=== PATIENT | female | born 1955 | race Caucasian/White ===

== ENCOUNTER 2017-05-16 07:25 | Day surgery (SDC) | payer BC ==
[~2017-05-16 07:25] MED LIST: Metoclopramide 10 MG/2 ML SDV IV PRN; Sodium Chloride 0.9% 10 ML Syringe FLUSH PRN
[2017-05-16] MEDS ORDERED: Sodium Chloride 0.9% 1,000 ML IV SCH (08:00)
[2017-05-16] MEDS ORDERED: Propofol 1,000 MG/100 ML SDV ONE (09:05)
[2017-05-16 09:43] VITALS: BP 109/70
--- NOTE | 2017-05-16 15:10 | OR ---
DATE OF OPERATION: 05/16/2017 PREOPERATIVE DIAGNOSIS: History of polyps. POSTOPERATIVE DIAGNOSIS: History of polyps. PROCEDURE: Colonoscopy. ANESTHESIA: MAC. ESTIMATED BLOOD LOSS: None. COMPLICATIONS: None. INDICATIONS FOR THE PROCEDURE: The patient is a 61-year-old female who 5 years ago had colonoscopy with removal of one small tubular adenomatous polyp. The patient is here today for her 5-year surveillance colonoscopy. The patient has not had any change in bowel habits or blood in the stool over the past 5 years. DESCRIPTION OF PROCEDURE: Informed consent was obtained from the patient. The patient was taken to the operating room and placed on the table in the left lateral decubitus position. Monitored anesthesia care was applied. Digital rectal exam was performed which was normal. The colonoscope was then inserted through the anus into the rectum and directed towards the cecum. We did utilize abdominal pressure to reach the cecum. The cecum was identified by the appendiceal orifice as well as the ileocecal valve. The colonoscope was then slowly withdrawn. No polyps, no masses, no areas of ischemia or inflammation, or AV malformations were identified on the way out. Retroflexion was performed in the rectum which was also normal. Colonoscope was then removed. The patient tolerated the procedure well and was brought to recovery room in good condition. FINDINGS: Normal colonoscopy. RECOMMENDATIONS: Due to her previous history of polyps, would recommend repeat colonoscopy in 5 years. SHERRON /[id number]
== END 2017-05-16 11:10 | disposition home or self-care (01) ==
LOC: LB.SDS 07:25
PROVIDERS: ATTEND Surgery
DX: Z12.11 Encounter for screening for malignant neoplasm of colon (principal); Z86.010 Personal history of colon polyps; Z88.0 Allergy status to penicillin; Z98.890 Other specified postprocedural states; Z98.51 Tubal ligation status; Z87.891 Personal history of nicotine dependence; Z79.899 Other long term (current) drug therapy
CPT/HCPCS: 45378; J7040; J3490

== ENCOUNTER → 2019-06-23 | Outpatient (CLI) | payer MEDICARE ==
--- NOTE | 2019-06-28 12:47 | MY ---
Date of Service: 06/23/19 Clinical Data: SELF REFERRAL LAST MAHIN 06/19/18 BILATERAL MAMMOGRAMS: Comparison is made to a prior exam dated 06/19/18. The breast tissue is heterogeneously dense bilaterally. There is stable asymmetry. No significant changes from the prior exam. No evidence of malignancy. IMPRESSION: No evidence of malignancy. One year followup mammography is recommended. BI-RAD C: Mammogram - The breasts are heterogeneously dense, which may obscure small masses ACR 1 - Negative Mammogram. The exam was reviewed with R2 CAD. [id number] DEANNE
== END ==
LOC: LB.MAM 09:07
PROVIDERS: ATTEND Family Medicine
DX: Z12.31 Encounter for screening mammogram for malignant neoplasm of breast (principal)
CPT/HCPCS: 77067

== ENCOUNTER 2019-09-04 18:07 | Emergency (ER) | payer MEDICARE ==
--- NOTE | 2019-09-04 19:24 | EDM.PDOC ---
ED HPI GENERAL MEDICAL PROBLEM - General Chief Complaint: Laceration Stated Complaint: CUT FINGER Time Seen by Provider: 09/04/19 18:31 Source of Information: Reports: Patient History Limitations: Reports: No Limitations - History of Present Illness INITIAL COMMENTS - FREE TEXT/NARRATIVE: Rachel sustained a laceration in placing her hand in a drawer and accidentally pushing the pad of her left ring finger into a clean paring knife. They copiously washed this at home and attempted closure with butterfly bandaid, but continued to seep blood over an hour despite placing pressure. Certain her tdap is up to date within the last couple of years. 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) (butterfly closure and applied pressure) Right Finger-Ring Pain Score (Numeric/FACES): 6 - Related Data Allergies Allergy/AdvReac Type Severity Reaction Status Date / Time Penicillins Allergy Hives Verified 09/04/19 18:53 Home Meds: Home Meds Calcium Carbonate/Vitamin D3 [Calcium 500 + Vit D 400] 1 each PO DAILY 05/15/17 [History] Multivitamin [Multi-Day Vitamins] 1 each PO DAILY 05/15/17 [History] Past Medical History HEENT History: Reports: Retinal Detachment Gastrointestinal History: Reports: Colon Polyp CERTIFIED DETENTION DEPUTY History: Reports: Musculoskeletal History: Reports: Fracture, Other (See Below) Other Musculoskeletal History: calcaneal fracture 2013. right wrist fracture 2017 - Past Surgical History HEENT Surgical History: Reports: Detached Retina GI Surgical History: Reports: Colonoscopy Musculoskeletal Surgical History: Reports: ORIF, Other (See Below) Social & Family History - Family History Respiratory: Reports: Other (See Below) Other Respiratory Family Hisory: lung transplant GI: Reports: Other (See Below) Other GI Family History: colon ca OBGYN: Reports: Other (See Below) Other OBGYN Family History: uterine ca Musculoskeletal: Reports: Osteoporosis Immunologic: Reports: Solid Organ Transplant Oncologic: Reports: Breast, Pancreatic, Uterine - Caffeine Use Caffeine Use: Reports: Coffee ED ROS GENERAL - Review of Systems Review Of Systems: See Below Constitutional: Reports: No Symptoms Hematologic/Lymphatic: Reports: No Symptoms. Denies: Easy Bleeding, Easy Bruising ED EXAM, SKIN/RASH Exam: See Below Exam Limited By: No Limitations General Appearance: Alert, WD/WN, No Apparent Distress Eye Exam: Bilateral Eye: EOMI Respiratory/Chest: No Respiratory Distress Extremities: Normal Range of Motion, Non-Tender, Normal Capillary Refill Skin: Warm, Dry, Wound/Incision (1.5 cm laceration of left 4th finger pad with careful inspection excluding foreign body as well as contamination. Closure obtained with dermabound reinforced with steri strips and patient tolerated well. Dressing applied per RN.) ED SKIN PROCEDURES - Laceration/Wound Repair Left Digit - 4th (Ring) Appearance: Superficial Distal NVT: Neuro & Vascular Intact Course - Vital Signs Last Recorded V/S: Last Vital Signs Temp 97.2 F 09/04/19 18:33 Pulse 76 09/04/19 18:33 Resp 18 09/04/19 18:33 BP 137/82 09/04/19 18:33 Pulse Ox 96 09/04/19 18:33 Departure - Departure Time of Disposition: 19:00 Disposition: DC/Tfer to Hospice - Home 50 Clinical Impression: Laceration - Discharge Information Instructions: Wound Care, Adult Referrals: PCP,None [Primary Care Provider] - Forms: ED Department Discharge Additional Instructions: Discharge home. Keep dressing clean and dry. Wear gloves if cleaning and doing any house work. Call or return to the ER if you have any questions or concerns. Sepsis Event Note - Focused Exam Date Exam was Performed: 09/05/19 Time Exam was Performed: 09:23
[2019-09-04 19:49] VITALS: BP 137/82
[2019-09-04 20:04] VITALS: PULSE 76
== END 2019-09-04 19:00 | disposition hospice, home (50) ==
LOC: LB.ED 18:07
DX: S61.215A Laceration without foreign body of left ring finger without damage to nail, initial encounter (principal); Z88.0 Allergy status to penicillin; W26.0XXA Contact with knife, initial encounter
CPT/HCPCS: 12001; 99282; 99282-25

== ENCOUNTER 2022-10-18 11:49 | Day surgery (SDC) | payer MEDICARE ==
[~2022-10-18 11:49] MED LIST changes: -Sodium Chloride 0.9% 10 ML Syringe FLUSH PRN
[2022-10-18] MEDS: Sodium Chloride 0.9% 1,000 ML IV SCH (14:32)
[2022-10-18] MEDS ORDERED: Propofol 1,000 MG/100 ML SDV ONE (15:10)
[2022-10-18 15:31] VITALS: BP 119/74; PULSE 68
== END 2022-10-18 16:20 | disposition home or self-care (01) ==
LOC: LB.SDS 11:49
PROVIDERS: ATTEND Surgery
DX: Z12.11 Encounter for screening for malignant neoplasm of colon (principal); K57.30 Diverticulosis of large intestine without perforation or abscess without bleeding; F41.9 Anxiety disorder, unspecified; E78.00 Pure hypercholesterolemia, unspecified; M81.0 Age-related osteoporosis without current pathological fracture; Z86.010 Personal history of colon polyps; Z79.899 Other long term (current) drug therapy; Z87.891 Personal history of nicotine dependence; Z88.0 Allergy status to penicillin
CPT/HCPCS: G0105; J2704; J7030